=== PATIENT | male | born 1965 | race Caucasian/White ===

== ENCOUNTER 2019-01-25 08:33 | Day surgery (SDC) | payer OTHER ==
[~2019-01-25 08:33] MED LIST: CEFAZOLIN 2 GM/50 ML (PMX) 50 ML IVPB; SEVOFLURANE 15 MIN
[2019-01-25] MEDS: SOD CHLORIDE 0.9% 1,000 ML IV (09:51)
[2019-01-25] MEDS ORDERED: MEPERIDINE 100 MG INJ (10:51)
[2019-01-25] MEDS ORDERED: LIDOCAINE 2% (SDV) 5 ML INJ (10:51)
[2019-01-25] MEDS ORDERED: CEFAZOLIN 1 GM INJ (10:51)
[2019-01-25] MEDS ORDERED: PROPOFOL 20 ML (10:51)
[2019-01-25] MEDS ORDERED: BUPIVACAINE 0.25%/EPI (SDV) 30 ML INJ (11:00)
[2019-01-25] MEDS ORDERED: ONDANSETRON 4 MG INJ (11:18)
[2019-01-25] MEDS ORDERED: HYDROCODONE/APAP (5/325) TAB PO (11:30)
[2019-01-25] MEDS: BUPIVACAINE 0.25% (MPF) 30 ML INJ (12:39)
== END 2019-01-25 13:46 | disposition home or self-care (01) ==
LOC: SDS 08:33
DX: D17.21 Benign lipomatous neoplasm of skin and subcutaneous tissue of right arm (principal)
CPT/HCPCS: 14021; 88307